=== PATIENT | female | born 2000 ===

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

== ENCOUNTER 2020-03-20 18:57 | Emergency (ER) | payer OTHER ==
[~2020-03-20] VITALS: Ht 175.3 cm; Wt 70.3 kg
[~2020-03-20 18:57] MED LIST: Macrobid 100 M100 MG PO
[2020-03-20 19:58] LABS: Source, Urine Clean Catch
[2020-03-20 20:09] LABS: Appearance, Urine Clear (Clear); Bilirubin, Urine Neg (Neg); Blood, Urine 3+ (Neg); Color, Urine Yellow (P-Yellow); Glucose Qualitative, Urine Neg (Neg); Ketones, Urine 2+ (Neg); Leukocyte Esterase, Urine 1+ (Neg); Nitrite, Urine Neg (Neg); Protein, Urine 3+ (Neg); Urobilinogen, Urine 2+ (Normal)
[2020-03-20 20:20] LABS: Bacteria Mod /hpf; Mucus Light (0-Heavy); Squamous Epithelial Cells Few /hpf (Few)
[2020-03-20] MEDS ORDERED: CEFP200 PO (21:22)
== END 2020-03-20 21:38 | disposition home or self-care (01) ==
LOC: ER 18:57
PROVIDERS: Physician Assistant
DX: N12 Tubulo-interstitial nephritis, not specified as acute or chronic (principal); Z87.891 Personal history of nicotine dependence
CPT/HCPCS: 81001; 87077; 87086; 87186; 99283; A9270

== ENCOUNTER 2020-04-21 17:27 | Emergency (ER) | payer OTHER ==
[~2020-04-21] VITALS: Ht 175.3 cm; Wt 72.6 kg
[~2020-04-21 17:27] MED LIST changes: +CEFP200 PO
[2020-04-21 18:09] LABS: Source, Urine Clean Catch
[2020-04-21 18:23] LABS: Appearance, Urine Clear (Clear); Bilirubin, Urine Neg (Neg); Blood, Urine Neg (Neg); Color, Urine Yellow (P-Yellow); Glucose Qualitative, Urine Neg (Neg); Ketones, Urine Neg (Neg); Leukocyte Esterase, Urine Neg (Neg); Nitrite, Urine Neg (Neg); Protein, Urine Neg (Neg); Urobilinogen, Urine NORM (Normal)
[2020-04-21] MEDS ORDERED: NITR100CA PO (19:12)
== END 2020-04-21 19:19 | disposition home or self-care (01) ==
LOC: ER 17:27
PROVIDERS: Physician Assistant
DX: R30.0 Dysuria (principal)
CPT/HCPCS: 81003; 81025; 99284

== ENCOUNTER 2020-05-11 05:42 | Emergency (ER) | payer OTHER ==
[~2020-05-11] VITALS: Ht 175.3 cm; Wt 68.0 kg
[~2020-05-11 05:42] MED LIST changes: +NITR100CA PO
[2020-05-11 06:17] LABS: Source, Urine Clean Catch
[2020-05-11 06:24] LABS: Bilirubin, Urine Neg (Neg); Blood, Urine 4+ (Neg); Glucose Qualitative, Urine Neg (Neg); Ketones, Urine Neg (Neg); Leukocyte Esterase, Urine Neg (Neg); Nitrite, Urine Neg (Neg); Protein, Urine 2+ (Neg); Specific Gravity, Urine 1.025 (1.003-1.022); Urobilinogen, Urine NORM (Normal)
[2020-05-11 06:34] LABS: Appearance, Urine Clear (Clear); Color, Urine Yellow (P-Yellow)
[2020-05-11 06:36] LABS: Bacteria Mod /hpf; Mucus Mod (0-Heavy); Squamous Epithelial Cells Few /hpf (Few); White Blood Cells, Urine 0-2 /hpf (0-5)
[2020-05-11 07:00] LABS: BASOPHILS ABSOLUTE AUTO 0.03 K/mm3 (0.00-0.23); BASOPHILS PERCENT AUTO 0 % (0-2); EOSINOPHILS ABSOLUTE AUTO 0.04 K/mm3 (0.00-0.68); EOSINOPHILS PERCENT AUTO 1 % (0-6); Hematocrit 36.2 % (33.0-51.0); Hemoglobin 12.2 g/dL (11.5-16.0); IMMATURE GRAN ABSOLUTE AUTO 0.02 K/mm3 (0.00-0.10); IMMATURE GRAN PERCENT AUTO 0 % (0-1); LYMPHOCYTES ABSOLUTE AUTO 0.92 K/mm3 (0.84-5.20); LYMPHOCYTES PERCENT AUTO 11 % (21-46); MONOCYTES ABSOLUTE AUTO 0.37 K/mm3 (0.16-1.47); MONOCYTES PERCENT AUTO 4 % (4-13); Mean Corpuscular HGB 31.8 pg (26.0-34.0); Mean Corpuscular HGB Conc 33.7 g/dL (31.5-36.5); Mean Corpuscular Volume 94 fL (80-100); NEUTROPHILS PERCENT AUTO 84 % (41-73); Platelet Count 274 K/mm3 (150-400); RDW Coefficient Variation 13.1 % (11.7-14.2); Red Blood Cell Count 3.84 M/mm3 (3.80-5.20); White Blood Cell Count 8.48 K/mm3 (4.00-11.30)
[2020-05-11 07:19] LABS: Alanine Aminotransfer (ALT/SGP 21 U/L (12-78); Albumin, Blood 3.8 g/dL (3.4-5.0); Albumin/Globulin Ratio 1.2 (0.8-1.8); Alk Phos 47 U/L (45-116); Anion Gap 3 mmol/L (6-16); Aspartate Aminotrans (AST/SGOT 16 U/L (12-37); Beta HCG, Quantitative, Serum <1 mIU/mL (0-3); Bilirubin, Total 0.6 mg/dL (0.1-1.0); Blood Urea Nitrogen 10 mg/dL (8-21); Bun/Creatinine Ratio 17.6 (12.0-20.0); CO2, Blood 28 mmol/L (21-32); Calcium, Blood 8.4 mg/dL (8.5-10.1); Chloride, Blood 108 mmol/L (98-108); Creatinine, Blood 0.57 mg/dL (0.40-1.00); Globulin, Blood 3.2 g/dL (2.2-4.0); Glomerular Filtration Rate >60 (60-); Glucose, Blood 116 mg/dL (70-99); Potassium, Blood 3.8 mmol/L (3.5-5.5); Sodium, Blood 139 mmol/L (136-145)
[2020-05-11] MEDS ORDERED: ONDA4ODT SL (07:35)
[2020-05-11] MEDS ORDERED: IBUP400 PO (07:35)
== END 2020-05-11 08:11 | disposition home or self-care (01) ==
LOC: ER 05:42
PROVIDERS: Emergency Medicine
DX: R10.2 Pelvic and perineal pain (principal); Z88.1 Allergy status to other antibiotic agents
CPT/HCPCS: 80053; 81001; 81025; 84702; 85025; 87086; 96374; 96375; 99283-25; J1170; J2405; J7030

== ENCOUNTER 2021-07-10 18:16 | Emergency (ER) | payer OTHER ==
[~2021-07-10] VITALS: Ht 175.3 cm; Wt 86.2 kg
[~2021-07-10 18:16] MED LIST changes: +IBUP400 PO; +ONDA4ODT SL
[2021-07-10 18:58] LABS: BASOPHILS ABSOLUTE AUTO 0.04 K/mm3 (0.00-0.23); BASOPHILS PERCENT AUTO 0 % (0-2); EOSINOPHILS ABSOLUTE AUTO 0.15 K/mm3 (0.00-0.68); EOSINOPHILS PERCENT AUTO 1 % (0-6); Hematocrit 35.4 % (33.0-51.0); Hemoglobin 12.5 g/dL (11.5-16.0); IMMATURE GRAN ABSOLUTE AUTO 0.03 K/mm3 (0.00-0.10); IMMATURE GRAN PERCENT AUTO 0 % (0-1); LYMPHOCYTES ABSOLUTE AUTO 2.12 K/mm3 (0.84-5.20); LYMPHOCYTES PERCENT AUTO 20 % (21-46); MONOCYTES ABSOLUTE AUTO 0.67 K/mm3 (0.16-1.47); MONOCYTES PERCENT AUTO 6 % (4-13); Mean Corpuscular HGB 32.2 pg (26.0-34.0); Mean Corpuscular HGB Conc 35.3 g/dL (31.5-36.5); Mean Corpuscular Volume 91 fL (80-100); Mean Platelet Volume 9.8 fL (9.1-12.4); NEUTROPHILS PERCENT AUTO 72 % (41-73); Platelet Count 364 K/mm3 (150-400); RDW Coefficient Variation 12.3 % (11.7-14.2); Red Blood Cell Count 3.88 M/mm3 (3.80-5.20); White Blood Cell Count 10.71 K/mm3 (4.00-11.30)
[2021-07-10 19:04] LABS: Albumin, Blood 3.4 g/dL (3.4-5.0); Albumin/Globulin Ratio 0.9 (0.8-1.8); Bilirubin, Total 0.3 mg/dL (0.1-1.0); Bun/Creatinine Ratio 19.6 (12.0-20.0); Calcium, Blood 9.3 mg/dL (8.5-10.1); Creatinine, Blood 0.46 mg/dL (0.40-1.00); Globulin, Blood 3.9 g/dL (2.2-4.0); Potassium, Blood 3.7 mmol/L (3.5-5.5); Total Protein, Blood 7.3 g/dL (6.4-8.2)
[2021-07-10 19:50] LABS: Source, Urine Clean Catch
[2021-07-10 20:18] LABS: Appearance, Urine Clear (Clear); Bilirubin, Urine Neg (Neg); Blood, Urine 2+ (Neg); Color, Urine Yellow (P-Yellow); Glucose Qualitative, Urine Neg (Neg); Ketones, Urine Neg (Neg); Leukocyte Esterase, Urine Neg (Neg); Nitrite, Urine Neg (Neg); Protein, Urine Neg (Neg); Specific Gravity, Urine 1.015 (1.003-1.022); Urobilinogen, Urine NORM (Normal)
[2021-07-10 20:27] LABS: Bacteria Few /hpf; Squamous Epithelial Cells Few /hpf (Few); White Blood Cells, Urine 0-2 /hpf (0-5)
[2021-07-11] MEDS ORDERED: [UNRECOGNIZED DRUG - OTHER] PO (12:34)
== END 2021-07-10 21:05 | disposition home or self-care (01) ==
LOC: ER 18:16
PROVIDERS: Physician Assistant
DX: O03.9 Complete or unspecified spontaneous abortion without complication (principal)
CPT/HCPCS: 36415; 76815; 80053; 81001; 85025; 86900; 86901

== ENCOUNTER 2021-07-11 11:51 | Inpatient (IN) | payer OTHER ==
[~2021-07-11] VITALS: Ht 175.3 cm; Wt 89.8 kg
[2021-07-11] MEDS ORDERED: [UNRECOGNIZED DRUG - OTHER] PO (12:34)
[2021-07-11 13:05] LABS: BASOPHILS ABSOLUTE AUTO 0.03 K/mm3 (0.00-0.23); BASOPHILS PERCENT AUTO 0 % (0-2); EOSINOPHILS ABSOLUTE AUTO 0.13 K/mm3 (0.00-0.68); EOSINOPHILS PERCENT AUTO 2 % (0-6); Hematocrit 34.6 % (33.0-51.0); Hemoglobin 12.2 g/dL (11.5-16.0); IMMATURE GRAN ABSOLUTE AUTO 0.04 K/mm3 (0.00-0.10); IMMATURE GRAN PERCENT AUTO 1 % (0-1); LYMPHOCYTES ABSOLUTE AUTO 1.62 K/mm3 (0.84-5.20); LYMPHOCYTES PERCENT AUTO 19 % (21-46); MONOCYTES ABSOLUTE AUTO 0.49 K/mm3 (0.16-1.47); MONOCYTES PERCENT AUTO 6 % (4-13); Mean Corpuscular HGB 32.3 pg (26.0-34.0); Mean Corpuscular HGB Conc 35.3 g/dL (31.5-36.5); Mean Corpuscular Volume 92 fL (80-100); Mean Platelet Volume 9.6 fL (9.1-12.4); NEUTROPHILS ABSOLUTE AUTO 6.32 K/mm3 (1.96-9.15); NEUTROPHILS PERCENT AUTO 73 % (41-73); Platelet Count 334 K/mm3 (150-400); RDW Coefficient Variation 12.3 % (11.7-14.2); RDW Standard Deviation 41.1 fL (35.1-46.3); Red Blood Cell Count 3.78 M/mm3 (3.80-5.20); White Blood Cell Count 8.63 K/mm3 (4.00-11.30)
[2021-07-11 13:28] LABS: International Normalized Ratio 0.98; Prothrombin Time Results 10.3 Sec (9.7-11.5)
[2021-07-11 13:33] LABS: Albumin, Blood 3.5 g/dL (3.4-5.0); Albumin/Globulin Ratio 0.9 (0.8-1.8); Bilirubin, Total 0.5 mg/dL (0.1-1.0); Bun/Creatinine Ratio 15.6 (12.0-20.0); Calcium, Blood 8.8 mg/dL (8.5-10.1); Creatinine, Blood 0.39 mg/dL (0.40-1.00); Globulin, Blood 3.8 g/dL (2.2-4.0); Potassium, Blood 3.4 mmol/L (3.5-5.5); Total Protein, Blood 7.3 g/dL (6.4-8.2)
[2021-07-11 14:03] LABS: Influenza A, PCR NEGATIVE (NEGATIVE); Influenza B, PCR NEGATIVE (NEGATIVE); Resp Syncytial Virus, PCR NEGATIVE (NEGATIVE); SARS-Cov-2 (COVID-19) PCR, MMC NEGATIVE (NEGATIVE)
--- NOTE | 2021-07-11 20:10 | NUR ---
DEVONTE AT BEDSIDE TO SEE PT AND DISCUSS PLAN OF CARE. PT UPDATED THAT A HIGHER DOSE OF MISOPRSTOL WILL BE USED WITH THE NEXT SCHEDULED DOSE. PT EXPRESSED DESIRE TO HAVE BABY BAPTIZED AFTER DELIVERY. RN TO CALL AND NOTIFY PASTORAL CARE.
--- NOTE | 2021-07-11 21:08 | NUR ---
Upon responding to a call-back, I visit patient. The father of baby Enoc, Kody, is bedside and they request a caodaism for Enoc who is still-born. After exploring the parents sikh beliefs, I perform a caodaism and prayer of blessing for the baby and comfort for the family. I listen empathically and provide grief support and a calming presence. Family and staff voice appreciation. I will continue to remain available.
--- NOTE | 2021-07-12 04:00 | NUR ---
PT CALLED OUT TO RN [employer]. WHEN RN ENTERED BATHROOM PT WAS ON THE TOILET SAYING SOMETHING WAS COMING OUT OF HER VAGINA AND ASKED IF SHE SHOULD PULL IT OUT. RN ASSISTED WITH REMOVING TISSUE FROM VAGINA WITH PT SITTING ON TOILET. TISSUE APPEARED TO LOOK PLACENTAL. RN WILL MONITOR PT'S BLEEDING AND NOTIFY PROVIDER OF TISSUE.
[2021-07-12 05:43] LABS: Hematocrit 33.4 % (33.0-51.0); Hemoglobin 11.6 g/dL (11.5-16.0); Mean Corpuscular HGB 32.1 pg (26.0-34.0); Mean Corpuscular HGB Conc 34.7 g/dL (31.5-36.5); Mean Corpuscular Volume 93 fL (80-100); Mean Platelet Volume 9.6 fL (9.1-12.4); Platelet Count 280 K/mm3 (150-400); RDW Coefficient Variation 12.6 % (11.7-14.2); RDW Standard Deviation 42.6 fL (35.1-46.3); Red Blood Cell Count 3.61 M/mm3 (3.80-5.20); White Blood Cell Count 10.14 K/mm3 (4.00-11.30)
[2021-07-12] MEDS ORDERED: IBUP800 PO (08:52)
--- NOTE | 2021-07-12 09:50 | NUR ---
chris home at 0945, has follow up phone call on friday for [facility], encouraged for her to call and make appt with kenroy, encouraged to call with any questoins,
[2021-07-13 19:07] LABS: RUBELLA ANTIBODIES, IGG 8.86 index (Immune >0.99)
== END 2021-07-12 09:45 | disposition home or self-care (01) | DRG 807 ==
LOC: OBS 11:51 → BC 11:54 → OBS 12:00 → BC 12:01
PROVIDERS: ADMIT Nurse Practitioner Obstetrics & Gynecology
PROC: 10E0XZZ Delivery of Products of Conception, External Approach (ICD-10-PCS; principal; 2021-07-11)
PROC: 3E0P7VZ Introduction of Hormone into Female Reproductive, Via Natural or Artificial Opening (ICD-10-PCS; 2021-07-11)
DX: O36.4XX0 Maternal care for intrauterine death, not applicable or unspecified (principal); Z37.1 Single stillbirth; Z3A.20 20 weeks gestation of pregnancy; Z20.822 Contact with and (suspected) exposure to COVID-19; Z88.8 Allergy status to other drugs, medicaments and biological substances; Z79.899 Other long term (current) drug therapy
CPT/HCPCS: 0241U; 36415; 80053; 85025; 85027; 85610; 85730; 86850; 86900; 86901; A9270; J1885; J3010

== ENCOUNTER → 2024-03-16 | Outpatient (CLI) | payer OTHER ==
[~2024-03-16] MED LIST changes: +IBUP800 PO; +PRENATAL TABLE1 EAC2 PO; +[UNRECOGNIZED DRUG - OTHER] PO
== END | disposition home or self-care (01) ==
LOC: LAB SHORT 14:05 → LAB 14:05
DX: N39.0 Urinary tract infection, site not specified (principal)
CPT/HCPCS: 87086

== ENCOUNTER → 2024-08-26 | Outpatient (CLI) | payer OTHER | LOC: LAB SHORT 17:49 → LAB 17:49 | DX: N39.0 Urinary tract infection, site not specified (principal); R31.9 Hematuria, unspecified | CPT/HCPCS: 87086 ==